=== PATIENT | female | born 1990 | race Caucasian/White ===

== ENCOUNTER 2021-03-22 14:28 | Emergency (ER) | payer OTHER, SELFPAY ==
[2021-03-22 14:50] VITALS: BP 147/94; PULSE 94; RESP 20; TEMP 37.1; O2SAT 100
--- NOTE | 2021-03-22 14:55 | ED.DENTAL ---
HPI - Dental/Oral General Chief complaint: Dental/Oral Stated complaint: tooth abscess/nerve exposed Time Seen by Provider: 03/22/21 14:33 Source: patient Mode of arrival: ambulatory Limitations: no limitations History of Present Illness HPI Narrative: 31-year-old woman comes in today complaining of left upper and lower dental pain that been present for the last for 4 days. Patient states that she is taking some anti-inflammatories and some leftover pain medication at home and it did not help her symptoms. She has had no difficulty swallowing, difficulty breathing or fever. MD Complaint: tooth pain Onset (ago): day(s) (4) Duration: constant Severity: severe Relieving factors: NSAIDs and prescription analgesics Exacerbating factors: chewing Context: history of dental caries Associated symptoms: ear pain Treatment prior to arrival: oral analgesic Related Data Allergies Allergy/AdvReac Type Severity Reaction Status Date / Time No Known Allergies Allergy Verified 03/22/21 14:55 Review of Systems Review of Systems: All systems reviewed & are unremarkable except as noted in HPI and below Constitutional: Constitutional: Denies chills and Denies fever(s) ENT: Denies nasal congestion and Denies sore throat Cardiovascular: Cardiovascular: Denies chest pain and Denies radiating jaw, neck or arm pain Respiratory: Respiratory: Denies cough and Denies dyspnea Allergic/Immunologic: Allergic/Immunologic: Denies lip swelling and Denies throat swelling [facility] Social History Social History (Updated 03/22/21 @ 15:14 by Yonas Hines MD) Smoking status: Current every day smoker Alcohol intake: former Substance use: never Living arrangements: with family Exam Const: General: healthy appearing and alert Orientation/consciousness: patient oriented x3 Limitations: no limitations Other: Moderate to severe acute distress. HENMT: Head: normal to inspection Ears: external ears normal, TM's normal bilaterally and EAC's normal General nose exam: Normal nares present Face and sinus: normal facial exam Mouth: Yes moist mucous membranes Throat: posterior oropharynx normal Other: Decay and tenderness without swelling at left upper 1st molar, left lower 2nd molar and left upper 3nd molar. Eyes: Conjunctivae: conjunctivae normal Pupils: Equal, round and reactive pupils present EOM: EOMs intact bilaterally Skin: General skin exam: normal color, no jaundice and no pallor Rashes: no rashes Neuro: General: patient oriented x3, moves all extremities, no focal motor deficits and CN's II-XI intact bilaterally Speech: normal speech Gait exam (Neuro): Normal gait present Extrem: General: normal to inspection and no clubbing, cyanosis or edema Psych: Appearance: grossly normal and well kempt Mental Status: mental status grossly normal Affect: normal affect Attitude: cooperative Thought content: Yes Normal thought content present Discharge Plan Discharge Clinical Impression: Toothache Patient Disposition: Home, Self-Care Condition: Stable Instructions: Antibiotic Form, Toothache (ED) Additional Instructions: Follow-up with the dentist next week for further treatment. If you are unable to swallow liquids, have high fever, or having trouble breathing, return to the emergency department. Prescriptions: New acetaminophen-codeine 300-30 mg tablet 1 tablet PO Q6H PRN (Reason: pain) Qty: 15 RF: 0 amoxicillin-pot clavulanate [Augmentin] 875-125 mg tablet 1 tablet PO Q12H Qty: 20 RF: 0 Follow-up/Referrals: Helga,Stephane Severino MD [Primary Care Provider] - Stand Alone Forms: Work/School Release IP
[2021-03-22] MEDS: ACETAMINOPHEN/CODEINE (*CRX) 300/30 MG TABLET 1 TAB PO (15:26)
[2021-03-22 15:27] VITALS: BP 147/97; PULSE 84; RESP 20; TEMP 37.1; O2SAT 97
== END 2021-03-22 15:29 | disposition home or self-care (01) ==
PROVIDERS: Emergency Provider Emergency Medicine; PCP Family Medicine
DX: K08.89 Other specified disorders of teeth and supporting structures (principal)
CPT/HCPCS: 99283; A9270